=== PATIENT | female | born 1995 | race Hispanic/Latino ===

== ENCOUNTER 2022-11-05 13:34 | Emergency (ER) | payer OTHER, SELFPAY ==
--- NOTE | 2022-11-05 16:10 | RAD REPORT ---
EXAM DESCRIPTION: RAD - Foot Left 3 View - 11/05/2022 4:03 pm CLINICAL HISTORY: Left Foot pain FINDINGS: No fracture or dislocation is seen. No bone or joint abnormality noted
--- NOTE | 2022-11-05 16:41 | EDPHYS ---
Physician Documentation [facility] Name: Lisa Carter Age: 27 yrs Sex: Female : 1995 Arrival Date: 11/05/2022 Time: 13:34 Bed 9 Private MD: ED Physician Feng Amado HPI: 11/05 16:03 This 27 yrs old presents to ER via Ambulatory with complaints of Foot Injury. kb 16:03 The complaints affect the dorsum of left foot. kb 16:05 The patient presents with a contusion, an injury, a laceration, pain, swelling, kb tenderness. The complaints affect the dorsum of left foot. Context: The problem was sustained at home, resulted from a heavy object falling, the patient can fully bear weight, the patient is able to ambulate. Onset: The symptoms/episode began/occurred yesterday. Modifying factors: The symptoms are alleviated by nothing, the symptoms are aggravated by movement. Associated signs and symptoms: Pertinent positives: swelling, Pertinent negatives: calf tenderness, fever, nausea, numbness, rash, tingling, vomiting, warmth, weakness. Severity of symptoms: At their worst the symptoms were mild, moderate, in the emergency department the symptoms are unchanged. The patient has not experienced similar symptoms in the past. The patient has not recently seen a physician. Pt reports she dropped a heavy speaker on her foot yesterday causing laceration. Reports pain to left foot. Came to see if it was fractured. 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 - Social history:: Smoking status: Reported history of juuling and/or vaping. ROS: 16:01 Constitutional: Negative for fever, chills, and weight loss. kb 16:01 MS/extremity: Positive for laceration, pain, swelling, tenderness, of the dorsum of left foot. 16:01 Skin: Positive for laceration(s), of the dorsum of left foot. 16:01 All other systems are negative. Exam: 16:01 Constitutional: This is a well developed, well nourished patient who is awake, alert, kb and in no acute distress. Head/Face: Normocephalic, atraumatic. ENT: Moist Mucous membranes Respiratory: Respirations even and unlabored. No increased work of breathing. Talking in full sentences Neuro: Awake and alert, GCS 15, oriented to person, place, time, and situation. Moves all extremities. Normal gait. 16:01 Musculoskeletal/extremity: Extremities: grossly normal except: noted in the dorsum of left foot: contusion, laceration, pain, swelling, tenderness, ROM: intact in all extremities, Circulation is intact in all extremities. Sensation intact. Weight bearing: able to fully bear weight. 16:01 Skin: injury, laceration(s), the wound is approximately 2 cm(s), of the dorsum of left foot, that can be described as clean, no foreign body, irregular, without bleeding. Vital Signs: 13:45 BP 120 / 74; Pulse 71; Resp 16; Temp 98.2; Pulse Ox 100% on R/A; Weight 79.38 kg; mb9 Height 5 ft. 7 in. ; Pain 6/10; 16:13 BP 104 / 60; Pulse 69; Resp 16; Pulse Ox 100% on R/A; ll1 13:45 Body Mass Index 27.41 (79.38 kg, 170.18 cm) mb9 13:45 Pain Scale: Adult mb9 MDM: 13:37 Patient medically screened. kb 16:03 Data reviewed: vital signs, nurses notes. kb 16:05 Differential diagnosis: fracture, sprain, laceration, contusion. Independent kb interpretation of the following test(s) in the Emergency Department X-Ray: My interpretation is no acute fracture. Counseling: I had a detailed discussion with the patient and/or guardian regarding: the historical points, exam findings, and any diagnostic results supporting the discharge/admit diagnosis, radiology results, the need for outpatient follow up, a family practitioner, to return to the emergency department if symptoms worsen or persist or if there are any questions or concerns that arise at home. 11/05 15:59 Order name: Wound Care; Complete Time: 16:07 kb Administered Medications: No medications were administered Disposition: 17:45 Co-signature as Attending Physician, Feng Amado MD I reviewed the patient's care rn provided by the Advanced Practice Provider and agree with the diagnosis and treatment plan. Disposition Summary: 11/05/22 15:59 Discharge Ordered Location: Home kb Condition: Stable kb Diagnosis - Laceration without foreign body of foot kb - Contusion of left foot kb Followup: kb - With: Emergency Department - When: As needed - Reason: Worsening of condition Followup: kb - With: Private Physician - When: 2 - 3 days - Reason: Recheck today's complaints, Continuance of care, Re-evaluation by your physician Discharge Instructions: - Discharge Summary Sheet kb - Laceration Care, Adult, [id number] kb - Foot Contusion, [id number] kb Forms: - Work release form kb - Medication Reconciliation Form kb - Thank You Letter kb - Antibiotic Education kb - Prescription Opioid Use kb - Patient Portal Instructions kb Signatures: Amena Lezama FNP-C FNP-Feng Graves MD MD rn Breneman, Mary Beth, RN RN mb9
--- NOTE | 2022-11-05 16:41 | ER ---
Nurse's Notes [facility] Name: Lisa Carter Age: 27 yrs Sex: Female : 1995 Arrival Date: 11/05/2022 Time: 13:34 Bed 9 Private MD: Diagnosis: Laceration without foreign body of foot;Contusion of left foot Presentation: 11/05 13:45 Chief complaint: Patient states: "Yesterday afternoon, I dropped a Bluetooth speaker on mb9 my left foot. It hurts really bad and I cut it. I'm barley able to walk on it". Coronavirus screen: At this time, the client does not indicate any symptoms associated with coronavirus-19. Ebola Screen: No symptoms or risks identified at this time. Initial Sepsis Screen: Does the patient meet any 2 criteria? No. Patient's initial sepsis screen is negative. Does the patient have a suspected source of infection? No. Patient's initial sepsis screen is negative. Risk Assessment: Do you want to hurt yourself or someone else? Patient reports no desire to harm self or others. Onset of symptoms was November 04, 2022. 13:45 Method Of Arrival: Ambulatory mb9 13:45 Acuity: STEVENSON 4 mb9 Triage Assessment: 13:46 General: Appears in no apparent distress. Behavior is calm, cooperative. Pain: mb9 Complains of pain in left foot. Neuro: [place] Cruz Agitation-Sedation Scale (RASS): 0 - Alert and Calm Level of Consciousness is awake, alert, obeys commands, Oriented to person, place, time, situation, Appropriate for age. Cardiovascular: Patient's skin is warm and dry. Respiratory: Airway is patent Respiratory effort is even, unlabored, Respiratory pattern is regular, symmetrical. GI: No signs and/or symptoms were reported involving the gastrointestinal system. : No signs and/or symptoms were reported regarding the genitourinary system. Derm: Skin is pink, warm \\T\\ dry. Musculoskeletal: Range of motion: limited in left ankle. Injury Description: Laceration sustained to left foot is jagged, 2.6 to 7.5 cm long, not bleeding. 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 - Social history:: Smoking status: Reported history of juuling and/or vaping. Screenin:48 [facility] ED Fall Risk Assessment (Adult) History of falling in the last 3 months, mb9 including since admission No falls in past 3 months (0 pts) Confusion or Disorientation No (0 pts) Intoxicated or Sedated No (0 pts) Impaired Gait No (0 pts) Mobility Assist Device Used No (0 pt) Altered Elimination No (0 pt) Score/Fall Risk Level 0 - 2 = Low Risk Oriented to surroundings, Maintained a safe environment, Educated pt \\T\\ family on fall prevention, incl call for assistance when getting out of bed. Abuse screen: Denies threats or abuse. Nutritional screening: No deficits noted. Tuberculosis screening: No symptoms or risk factors identified. Assessment: 13:47 Reassessment: see triage assessment. mb9 14:00 Reassessment: Patient appears in no apparent distress at this time. Patient and/or eh3 family updated on plan of care and expected duration. Pain level reassessed. Patient is alert, oriented x 3, equal unlabored respirations, skin warm/dry/pink. 16:10 Reassessment: No changes from previously documented assessment. Patient and/or family ll1 updated on plan of care and expected duration. Pain level reassessed. Patient is alert, oriented x 3, equal unlabored respirations, skin warm/dry/pink. Vital Signs: 13:45 BP 120 / 74; Pulse 71; Resp 16; Temp 98.2; Pulse Ox 100% on R/A; Weight 79.38 kg; mb9 Height 5 ft. 7 in. ; Pain 6/10; 16:13 BP 104 / 60; Pulse 69; Resp 16; Pulse Ox 100% on R/A; ll1 13:45 Body Mass Index 27.41 (79.38 kg, 170.18 cm) mb9 13:45 Pain Scale: Adult mb9 ED Course: 13:37 Patient arrived in ED. am2 13:37 Amena Lezama FNP-C [facility]. kb 13:37 Feng Amado MD is Attending Physician. kb 13:46 Triage completed. mb9 13:46 Arm band placed on. mb9 13:48 Belén Montemayor, RN is Primary Nurse. mb9 13:48 Placed in gown. Bed in low position. Call light in reach. Side rails up X 1. Client mb9 placed on continuous cardiac and pulse oximetry monitoring. NIBP monitoring applied. 14:00 Provided Education on: N/A. eh3 16:11 Wound care: to abrasion, located on left ankle was cleaned with with and saline, ll1 dressed with 4X4s, band aid, Patient tolerated well. 16:12 No provider procedures requiring assistance completed. Patient did not have IV access ll1 during this emergency room visit. Administered Medications: No medications were administered Medication: 13:48 VIS not applicable for this client. mb9 Outcome: 15:59 Discharge ordered by . kb 16:12 Discharged to home ambulatory. 1 16:12 Condition: stable 16:12 Discharge instructions given to patient, Instructed on discharge instructions, follow up and referral plans. wound care, Demonstrated understanding of instructions, follow-up care, wound care. 16:13 Patient left the ED. 1 Signatures: Amena Lezama, FLYING INSTRUCTOR-C FLYING INSTRUCTOR-CkPatt Moody Lynsay, RN RN 1 Cairdad Duran RN RN 3 Belén Montemayor, RN RN mb9
[2022-11-05 17:21] VITALS: TEMP 98.2; O2SAT 100
[2022-11-05 17:23] VITALS: BP 104/60
== END 2022-11-05 16:13 | disposition home or self-care (01) ==
LOC: ER 13:34
DX: S91.312A Laceration without foreign body, left foot, initial encounter (principal); W22.8XXA Striking against or struck by other objects, initial encounter; Y93.89 Activity, other specified; Y92.9 Unspecified place or not applicable; F17.290 Nicotine dependence, other tobacco product, uncomplicated
CPT/HCPCS: 99283